=== PATIENT | female | born 1995 | race Caucasian/White ===

== ENCOUNTER 2018-04-01 14:47 | Emergency (ER) | payer MEDICAID, SELFPAY ==
[2018-04-01 14:49] VITALS: BP 139/94; PULSE 140; RESP 20; TEMP 36.8; O2SAT 96; BMI 45.1
--- NOTE | 2018-04-01 15:27 | EKG12_ITS ---
Test Reason : WOUND Blood Pressure : / mmHG Vent. Rate : 123 BPM Atrial Rate : 123 BPM P-R Int : 136 ms QRS Dur : 072 ms QT Int : 316 ms P-R-T Axes : 062 038 025 degrees QTc Int : 452 ms Sinus tachycardia Poor R wave progression Confirmed by GAYATRI YAP, RUSSEL ([id number]), editor managing newspaper KELSIE LOPEZ ([id number] on 04/03/2018 3:12:21 PM Referred By: JAYCEE Confirmed By:RUSSEL MENDIETA MD
--- NOTE | 2018-04-01 15:30 | ED.VISSUMM ---
- ER Visit Summary Date of Service: 04/01/18 Chief Complaint: Right foot pain History of Present Illness: The patient is a 23 F 3 weeks postop for right heel and foot surgery who presents for pain, swelling and exudate at the surgical site. Patient states 3 weeks ago she had surgery on her right heel and foot. She has been on Percocet and 1 week of antibiotics afterwards. She did not complete the antibiotics because they gave her a bad taste in her mouth. Today she is feeling lightheaded and has increased pain. There has been yellowish red oozing from one spot on the surgical incision. She denies fever, nausea or vomiting, chest pain, shortness of breath or other complaints. She had 3 days of diarrhea in the last week. She called her doctor who told her to come to the emergency department. Patient has been taking Percocet for pain and ran out 2 days ago. She is supposed to be wearing a boot but states her foot is too swollen to fit into it. She states her doctor would not put her in a cast despite her requesting a multiple times. Patient's 100 pound dog jumped on her foot last night. Patient denies diabetes. Physical Examination: Vital signs: afebrile, tachycardic at 140, normotensive, no hypoxia on room air General: well nourished, well developed, in no distress, sitting in bed Skin: warm, dry, no rash, no pallor HEENT: normocephalic and atraumatic; PERRL, EOMI, moist mucous membranes Cardiovascular: Tachycardic rate and regular rhythm without murmurs, no peripheral edema, 2+ pulses all distal extremities Respiratory: No increased work of breathing, lungs are clear to auscultation bilaterally, no rales, rhonchi or wheezing Abdominal: Abdomen is soft, nontender with normoactive bowel sounds, no guarding or rebound, no masses MSK: Moves all extremities, no deformities, normal strength, 2 well-healing surgical incisions on the right lateral foot posterior to the lateral malleolus, no erythema, induration. One small site that looks like it has been actively draining, no purulent drainage at this time. Diffuse tenderness to palpation in the region. No fluctuance. Neuro: Awake and alert, oriented ?4. No facial droop, sensation and motor function intact and symmetric Test Results: Abnormal Lab Results 04/01/18 04/01/18 04/01/18 15:50 15:50 15:50 WBC 12.5 H RBC 5.44 H Hgb 15.4 H Hct 45.9 MCV 84.4 MCH 28.3 MCHC 33.6 RDW 13.2 RDW Differential 40.9 Plt Count 456 H MPV 10.0 Immature Gran % (Auto) 0.300 Neut % (Auto) 70.4 H Lymph % (Auto) 19.4 [place] % (Auto) 6.5 Eos % (Auto) 3.1 Baso % (Auto) 0.3 Absolute Neuts (auto) 8.8 H Absolute Lymphs (auto) 2.43 Total Counted Not Reportable PT 12.9 INR 1.0 APTT 37.3 H Sodium 140 Potassium 4.5 Chloride 105 Carbon Dioxide 25.0 Anion Gap 10 BUN 9 Creatinine 0.64 Estim Creat Clear Calc 125.79 Est GFR (MDRD) Af Amer 146 Est GFR (MDRD) Non-Af 121 BUN/Creatinine Ratio 14.1 Glucose 102 Lactic Acid Calcium 9.3 Total Bilirubin 0.50 AST 45 H ALT 81 H Alkaline Phosphatase 97 Total Protein 8.7 H Albumin 3.6 Globulin 5.1 H Albumin/Globulin Ratio 0.7 L 04/01/18 15:50 WBC RBC Hgb Hct MCV MCH MCHC RDW RDW Differential Plt Count MPV Immature Gran % (Auto) Neut % (Auto) Lymph % (Auto) [place] % (Auto) Eos % (Auto) Baso % (Auto) Absolute Neuts (auto) Absolute Lymphs (auto) Total Counted PT INR APTT Sodium Potassium Chloride Carbon Dioxide Anion Gap BUN Creatinine Estim Creat Clear Calc Est GFR (MDRD) Af Amer Est GFR (MDRD) Non-Af BUN/Creatinine Ratio Glucose Lactic Acid 1.7 Calcium Total Bilirubin AST ALT Alkaline Phosphatase Total Protein Albumin Globulin Albumin/Globulin Ratio Clinical Impression(s) from Imaging Studies Foot X-Ray 04/01/18 15:35 IMPRESSION: As above Electronically Signed: Hill Stewart DO at 16:00 EDT Tel , Service support , Medications Given Sodium Chloride () 1,000 mls @ 999 mls/hr IV .Q1H1M YOUNG Last Admin: 04/01/18 15:58 Dose: 999 mls/hr Discontinued Medications Ketorolac Tromethamine (Toradol) 30 mg IV X1 ONE Stop: 04/01/18 15:30 Last Admin: 04/01/18 15:58 Dose: 30 mg Oxycodone HCl (Oxyir) 5 mg PO X1 ONE Stop: 04/01/18 17:14 Emergency Department Course and Treatment: Patient presents with concern for foot infection at site of her surgery 3 weeks ago. Patient showed me a picture of the gauze soaked in the yellowish red discharge, and it did not look purulent but rather serosanguineous. Patient was given IV fluids, Toradol for pain. Because patient presents tachycardic, sepsis workup was initiated. Patient had mild leukocytosis of 12.5. Lactate was normal. Patient had improvement in her heart rate after pain control, and thus I suspect tachycardia was secondary to uncontrolled pain. Patient had no other derangements other than very minimal transaminitis. X-ray showed no deep space gas indicative of necrotizing fasciitis. Patient's incision site had no purulent drainage or dehiscence. Patient felt better after pain control, and she has a follow-up appointment on Tuesday with her surgeon. She was given a small prescription for Percocet and Zofran to get her through to this appointment. She is to restart the Keflex that she already has at home and that she stopped taking because she and her a bad taste in her mouth. Patient will return if any worsening of her condition. Discharged home. Treatment Plan: [] Disposition: [] Impression: Poorly controlled postoperative foot pain This note was generated with [employer] dictation software. It may contain incorrect words, spelling, and punctuation that were not noted in review of the chart prior to signing ED Disposition - Plan for ED Patient: Disposition: Home or Assisted Living Chief Complaint: Wound Instructions: Discharge Instructions for Foot Surgery Prescriptions: Oxycodone HCl/Acetaminophen [Percocet 5/325] 1 tab PO Q6H PRN PRN 3 Days #12 tab PRN Reason: Pain Ondansetron [Zofran Odt] 4 mg PO Q8H PRN PRN #10 tab PRN Reason: Nausea Referrals: Jackson Paz [NON-STAFF] - Additional Instructions: Keep your scheduled appointment with your foot surgeon, Dr. Castro, on Tuesday. Restart the Keflex when you get home, and follow-up with your doctor at your appointment on Tuesday to see if you need to continue it. Use the Percocet as needed for pain and Zofran for nausea. Drink plenty of fluids to stay hydrated. If you develop a high fever, red streaking moving up your right leg, severe uncontrolled pain, or any other new or concerning symptoms, return immediately to the emergency department for another evaluation.
--- NOTE | 2018-04-01 15:35 | RAD_ITS ---
STUDY: X-RAY - RIGHT FOOT CLINICAL: Female, 23 years old. Right foot pain, infection TECHNIQUE: 3 view(s) of the foot. COMPARISON: None. FINDINGS: No acute fracture or dislocation. Recent calcaneal osteotomy with fusion hardware. No evidence of hardware failure or loosening. Osteotomy healing is noted. Mild soft tissue swelling. RAD/Foot min 3 Views IMPRESSION: As above Electronically Signed: Hill Stewart DO at 16:00 EDT Tel , Service support ,
[2018-04-01 15:55] VITALS: PULSE 121; RESP 18; O2SAT 98
[2018-04-01] MEDS: Ketorolac 30 MG/ML Syringe IV (15:58)
[2018-04-01] MEDS: 0.9% Normal Saline 1,000 ML 999 ML IV (15:58)
[2018-04-01 16:25] LABS: Absolute Lymphocyte Count 2.43 X10^3/ul (0.83-4.51); Absolute Neutrophil Count 8.8 X10^3/uL (2.0-7.7); Basophil# 0.04 X10^3/uL; Basophil% 0.3 % (0-1); Eosinophil# 0.39 X10^3/uL; Eosinophils% 3.1 % (0-5); Hematocrit 45.9 % (37-47); Hemoglobin 15.4 g/dl (12.0-15.0); Lymphocyte # 2.43 X10^3/ul (4.0); Lymphocyte % 19.4 % (19-41); Mean Corp Hgb Conc 33.6 g/gl (32-36); Mean Corpuscular Hgb 28.3 pg (27.0-32.0); Mean Corpuscular Volume 84.4 fL (81-99); Monocyte# 0.81 X10^3/uL; Monocyte% 6.5 % (0-10); Neutrophil # 8.83 X10^3/uL (2.7-7.7); Neutrophil % 70.4 % (47-70); Platelet Count 456 K/mm3 (150-450); RBC Distribution Width CV 13.2 % (11.6-14.6); RBC Distribution Width SD 40.9 fl (35.1-43.9); Red Blood Count 5.44 M/mm3 (4.2-5.4); White Blood Count 12.5 K/mm3 (4.4-11.0)
[2018-04-01 16:27] LABS: POSITIVE COUNT NO; POSITIVE DIFFERENTIAL NO; POSITIVE MORPHOLOGY NO
[2018-04-01 16:28] LABS: Partial Thromboplast Time 37.3 Seconds (24.1-36.2); Prothrombin Time (Protime)PT. 12.9 SECONDS (11.7-14.9)
[2018-04-01 16:46] LABS: ALB/GLOB Ratio 0.7 RATIO (0.9-2.4); AST(SGOT) 45 U/L (15-37); Alanine Aminotransfer ALT/SGPT 81 U/L (13-56); Albumin, Serum 3.6 g/dL (3.2-5.0); Alkaline Phosphatase 97 U/L (45-117); Anion Gap 10 (5-15); BUN 9 mg/dL (7-18); BUN/Creat Ratio 14.1 RATIO (10-20); Calcium,Total 9.3 mg/dL (8.5-10.1); Chloride 105 mmol/L (98-107); Creatinine, Serum 0.64 mg/dL (0.55-1.02); EST Glomerular Filtration Rate 121 mL/min (>60); Est Glom Filt Rate - Afr Amer 146 mL/min (>60); Estimated Creatinine Clearance 125.79 ml/min; Globulin 5.1 g/dL (2.2-4.2); Glucose 102 mg/dL (74-106); Potassium 4.5 mmol/L (3.5-5.1); Protein, Total 8.7 g/dL (6.4-8.2); Sodium Level 140 mmol/L (136-145)
[2018-04-01 16:50] VITALS: BP 95/71; PULSE 96; RESP 16; TEMP 36.8; O2SAT 98
[2018-04-01 17:07] VITALS: BP 148/94; PULSE 70; RESP 18; O2SAT 97
[2018-04-01 17:07] LABS: Lactic Acid 1.7 mmol/L (0.4-2.0)
--- NOTE | 2018-04-01 17:16 | ED.DEP ---
ED Disposition - Plan for ED Patient: Disposition: Home or Assisted Living Chief Complaint: Wound Instructions: Discharge Instructions for Foot Surgery Prescriptions: Oxycodone HCl/Acetaminophen [Percocet 5/325] 1 tab PO Q6H PRN PRN 3 Days #12 tab PRN Reason: Pain Ondansetron [Zofran Odt] 4 mg PO Q8H PRN PRN #10 tab PRN Reason: Nausea Referrals: Jackson Paz [NON-STAFF] - Additional Instructions: Keep your scheduled appointment with your foot surgeon, Dr. Castro, on Tuesday. Restart the Keflex when you get home, and follow-up with your doctor at your appointment on Tuesday to see if you need to continue it. Use the Percocet as needed for pain and Zofran for nausea. Drink plenty of fluids to stay hydrated. If you develop a high fever, red streaking moving up your right leg, severe uncontrolled pain, or any other new or concerning symptoms, return immediately to the emergency department for another evaluation.
[2018-04-01 18:07] VITALS: BP 129/85; PULSE 94; RESP 18; O2SAT 99
[2018-04-01] MEDS: oxyCODONE 5 MG Tablet PO (18:08)
== END 2018-04-01 18:13 | disposition home or self-care (01) ==
PROVIDERS: Emergency Provider Emergency Medicine
DX: M79.671 Pain in right foot (principal); G89.18 Other acute postprocedural pain; E66.9 Obesity, unspecified
CPT/HCPCS: 73630; 80053; 83605; 85025; 85610; 85730; 87040; 93005; 96361; 96374; 99285; J7030

== ENCOUNTER → 2019-04-05 | Outpatient (CLI) | payer MEDICAID, SELFPAY | END | disposition home or self-care (01) | LOC: LABSPEC 13:20 | PROVIDERS: Visit Provider Advanced Practice Midwife | DX: Z12.4 Encounter for screening for malignant neoplasm of cervix (principal); Z11.3 Encounter for screening for infections with a predominantly sexual mode of transmission ==

== ENCOUNTER → 2019-04-19 | Outpatient (CLI) | payer MEDICAID, SELFPAY ==
[2019-04-19 15:47] LABS: Absolute Lymphocyte Count 2.69 X10^3/uL (0.83-4.51); Absolute Neutrophil Count 9.3 X10^3/uL (2.0-7.7); Basophil# 0.05 X10^3/uL; Basophil% 0.4 % (0-1); Color, Urine Yellow (Yellow); Eosinophil# 0.24 X10^3/uL; Eosinophils% 1.8 % (0-5); Glucose, Dipstick Normal (Normal); Hematocrit 40.3 % (37-47); Hemoglobin 13.4 g/dL (12.0-15.0); Ketone-Dipstick Negative (Negative); Leukocyte Esterase-Dipstick 25 /ul (Negative); Lymphocyte # 2.69 X10^3/ul (4.0); Lymphocyte % 20.7 % (19-41); Mean Corp Hgb Conc 33.3 g/dL (32-36); Mean Corpuscular Hgb 28.3 pg (27.0-32.0); Mean Corpuscular Volume 85.2 fL (81-99); Mean Platelet Vol. 9.8 fl (6.2-12.0); Monocyte# 0.67 X10^3/uL; Monocyte% 5.1 % (0-10); NRBC Flagged by Analyzer 0 % (0-5); Neutrophil # 9.31 X10^3/uL (2.7-7.7); Neutrophil % 71.5 % (47-70); Nitrite-Dipstick Negative (Negative); Occult Blood-Urine Negative /ul (Negative); Platelet Count 350 K/mm3 (150-450); Protein-Dipstick 15 mg/dl (Negative); RBC Distribution Width CV 13.1 % (11.6-14.6); RBC Distribution Width SD 40.8 fl (35.1-43.9); Red Blood Count 4.73 M/mm3 (4.2-5.4); Urine Bilirubin Dipstick Negative (Negative); Urine Clarity Clear (Clear); Urine Urobilinogen 1 mg/dl (Normal); Urine pH 6.5 (5.0 - 8.0)
[2019-04-19 16:08] LABS: Amphetamine Urine VISTA NEGATIVE (<1000 ng/mL); Barbiturate Urine VISTA NEGATIVE (< 200 ng/mL); Benzodiazepine Urine VISTA NEGATIVE (< 200 ng/mL); Cocaine Urine VISTA NEGATIVE (< 300 ng/mL); Ecstacy Urine VISTA NEGATIVE (< 500 ng/mL); Methadone Urine VISTA NEGATIVE (< 300 ng/mL); PCP Urine VISTA NEGATIVE (< 25 ng/mL); THC Urine VISTA POSITIVE (< 50 ng/mL); Vista UDS pH Range 6
[2019-04-19 16:25] LABS: Glucose Challenge Gest 1H 50g 98 mg/dL (70-140); Thyroid Stim Hormone (TSH) 0.83 uIU/mL (0.358-3.74)
[2019-04-20 10:07] LABS: HIV - WCH Non-Reactive (Nonreactive); Hepatitis B Surface Antigen Non-Reactive (Nonreactive); Hepatitis C Antibody Non-Reactive (Nonreactive); Rubella IgG 348.1 IU/mL
[2019-04-27 02:36] LABS: Prenatal RPR NONREACTIVE (NONREACTIVE)
== END | disposition home or self-care (01) ==
PROVIDERS: Visit Provider Advanced Practice Midwife
DX: Z34.81 Encounter for supervision of other normal pregnancy, first trimester (principal)
CPT/HCPCS: 36415; 80307; 81002; 82950; 84443; 85025; 86703; 86762; 86803; 87340

== ENCOUNTER 2019-07-14 14:18 | Emergency (ER) | payer MEDICAID, SELFPAY ==
[2019-07-14 14:19] VITALS: BP 145/86; PULSE 126; RESP 15; TEMP 36.8; O2SAT 96; BMI 56.7
--- NOTE | 2019-07-14 14:31 | ED.DCSUM_ITS ---
- ER Visit Summary Date of Service: 07/14/19 Chief Complaint: Possible foreign body in foot History of Present Illness: The patient is a 24 F who was concerned of a possible foreign body in her left foot. A month ago she stepped on glass. She removed the glass at that time by herself. About a week ago she started having trouble walking with pain near the left calcaneal area. She has had some bleeding from this area now as well. The pain is worse when she walks. She is currently 22 weeks gestation. Her tetanus is up-to-date. She is concerned that she may not have gotten all the glass out of her foot. Physical Examination: Vital signs are reviewed. Left foot exam reveals tenderness on the lateral bottom portion of the foot near the calcaneal area. No bleeding at this time. No erythema. It is mildly swollen locally Test Results: X-ray of the foot reveals a foreign body in the soft tissues Emergency Department Course and Treatment: The area was localized with lidocaine. There is a small puncture wound there already. I extended it slightly with a scalpel. I was then able to remove a piece of glass with the hemostats. I will place the patient on Keflex. She will follow-up with her doctor Treatment Plan: [] Disposition: Discharge Impression: Left foot soft tissue foreign body Foreign body removal by ED physician This note was generated with [employer] dictation software. It may contain incorrect words, spelling, and punctuation that were not noted in review of the chart prior to signing ED Disposition - Plan for ED Patient: Disposition: Home or Assisted Living Instructions: FOREIGN BODY, Soft Tissue [Removed] Prescriptions: Cephalexin [Keflex] 500 mg PO Q12 #20 cap Prescription Printed Referrals: Care Physician,No Primary [Primary Care Provider] -
--- NOTE | 2019-07-14 14:40 | RAD_ITS ---
STUDY: X-RAY - LEFT FOOT CLINICAL: Female, 24 years old. stepped on glass a month ago, painful, blackened area bottom of foot TECHNIQUE: 3 view(s) of the foot. COMPARISON: None. FINDINGS: Normal talus, calcaneus, and tarsal bones. Normal visualized subtalar, talonavicular, calcaneocuboid, tarsal and tarsometatarsal articulations. Normal metatarsi. Normal metatarsophalangeal joint of the great toe. Normal tibial and fibular sesamoid bones. Normal interphalangeal joint of the great toe. Normal phalanges of the great toe. Normal second through fifth metatarsophalangeal joints. Normal interphalangeal joints and phalanges of the lesser toes. There is 0.4 x 0.1 cm increased density foreign body in the plantar aspect in the area of puncture wound. RAD/Foot min 3 Views IMPRESSION: Foreign body in the soft tissues. Electronically Signed: Efe Rodrigues MD at 15:10 EST , Service support ,
[2019-07-14] MEDS: Cephalexin 250 MG Capsule 500 MG PO (16:13)
[2019-07-14 16:19] VITALS: BP 138/89
== END 2019-07-14 16:20 | disposition home or self-care (01) ==
PROVIDERS: Emergency Provider Emergency Medicine
DX: O99.89 Other specified diseases and conditions complicating pregnancy, childbirth and the puerperium (principal); S90.852A Superficial foreign body, left foot, initial encounter; W22.09XA Striking against other stationary object, initial encounter; O99.332 Smoking (tobacco) complicating pregnancy, second trimester; Z3A.22 22 weeks gestation of pregnancy
CPT/HCPCS: 10120; 73630; 99284

== ENCOUNTER → 2019-08-08 11:41 | Outpatient (CLI) | payer MEDICAID, SELFPAY ==
[2019-07-14 14:19] VITALS: BMI 56.7
[2019-08-08 12:10] LABS: Hematocrit 35.8 % (37-47); Hemoglobin 11.9 g/dL (12.0-15.0); Mean Corp Hgb Conc 33.2 g/dL (32-36); Mean Corpuscular Hgb 28.8 pg (27.0-32.0); Mean Corpuscular Volume 86.7 fL (81-99); Mean Platelet Vol. 9.9 fl (6.2-12.0); Platelet Count 302 K/mm3 (150-450); RBC Distribution Width CV 12.4 % (11.6-14.6); RBC Distribution Width SD 39.3 fl (35.1-43.9); Red Blood Count 4.13 M/mm3 (4.2-5.4); White Blood Count 13.2 K/mm3 (4.4-11.0)
[2019-08-08 12:12] LABS: Protein, Urine (Random) 28.8 mg/dL (<11.9); Protein:Creat Ratio 200 mg/g CRE (0-200)
[2019-08-08 12:34] LABS: AST(SGOT) 15 U/L (15-37); Alanine Aminotransfer ALT/SGPT 32 U/L (12-78); Albumin, Serum 2.7 g/dL (3.4-5.0); Alkaline Phosphatase 103 U/L (50-136); Bilirubin, Direct 0.12 mg/dL (0.00-0.30); Globulin 4.7 g/dL (2.3-3.5); Protein, Total 7.4 g/dL (6.4-8.2); Uric Acid 2.6 mg/dL (2.6-6.0)
== END ==
PROVIDERS: Visit Provider Obstetrics & Gynecology
DX: R60.9 Edema, unspecified (principal)
CPT/HCPCS: 36415; 80076; 82570; 84156; 84550; 85027

== ENCOUNTER → 2019-08-22 10:06 | Outpatient (CLI) | payer MEDICAID, SELFPAY ==
[2019-08-22 11:06] LABS: Hematocrit 37.1 % (37-47); Hemoglobin 12.4 g/dL (12.0-15.0); Mean Corp Hgb Conc 33.4 g/dL (32-36); Mean Corpuscular Hgb 29.5 pg (27.0-32.0); Mean Corpuscular Volume 88.1 fL (81-99); Mean Platelet Vol. 10.2 fl (6.2-12.0); Platelet Count 336 K/mm3 (150-450); RBC Distribution Width CV 12.3 % (11.6-14.6); RBC Distribution Width SD 39.2 fl (35.1-43.9); Red Blood Count 4.21 M/mm3 (4.2-5.4)
[2019-08-22 11:19] LABS: Glucose Challenge Gest 1H 50g 161 mg/dL (70-140)
[2019-08-22 13:57] LABS: Amphetamine Urine VISTA NEGATIVE (<1000 ng/mL); Barbiturate Urine VISTA NEGATIVE (< 200 ng/mL); Benzodiazepine Urine VISTA NEGATIVE (< 200 ng/mL); Cocaine Urine VISTA NEGATIVE (< 300 ng/mL); Ecstacy Urine VISTA NEGATIVE (< 500 ng/mL); Methadone Urine VISTA NEGATIVE (< 300 ng/mL); PCP Urine VISTA NEGATIVE (< 25 ng/mL); THC Urine VISTA POSITIVE (< 50 ng/mL); Vista UDS pH Range 6
== END ==
PROVIDERS: Visit Provider Obstetrics & Gynecology
DX: Z34.83 Encounter for supervision of other normal pregnancy, third trimester (principal)
CPT/HCPCS: 36415; 80307; 82950; 85027

== ENCOUNTER → 2019-08-28 09:41 | Outpatient (CLI) | payer MEDICAID, SELFPAY ==
[2019-08-28 10:51] LABS: Glucose GTT-Gestation. Fasting 91 mg/dL (<105)
[2019-08-28 11:37] LABS: Glucose GTT-Gestational 1 Hr 178 mg/dL (<190)
[2019-08-28 13:28] LABS: Glucose GTT-Gestational 2 Hr 161 mg/dL (<165)
[2019-08-28 13:37] LABS: Glucose GTT-Gestational 3 Hr 85 L (<145)
== END ==
PROVIDERS: Referring Provider Obstetrics & Gynecology; Visit Provider Obstetrics & Gynecology
DX: R73.09 Other abnormal glucose (principal)
CPT/HCPCS: 36415; 82951; 82952

== ENCOUNTER → 2019-10-23 17:55 | Outpatient (CLI) | payer MEDICAID, SELFPAY | PROVIDERS: Referring Provider Obstetrics & Gynecology; Visit Provider Obstetrics & Gynecology | DX: Z36.85 Encounter for antenatal screening for Streptococcus B (principal) | CPT/HCPCS: 87081 ==

== ENCOUNTER 2019-10-31 15:35 | Outpatient (CLI) | payer MEDICAID, SELFPAY ==
[2019-10-31 15:54] VITALS: BMI 56.5
[2019-10-31 16:10] VITALS: TEMP 35.7; O2SAT 96
[2019-10-31 16:12] VITALS: BP 131/75; PULSE 117
--- NOTE | 2019-10-31 17:48 | OB.TRI.HP_ITS ---
- Problem List (1) Maternal care for tachycardia during Status: Acute History of Present Illness Date of Service: 10/31/19 Was patient seen by the physician?: Yes Reason For Visit: NON STRESS TEST Date of Service: 10/31/19 Final LISA: 11/16/19 Final LISA Source: US <20 weeks Gestational age: 37 Weeks and 5 Days History of Present Illness: Patient was in the office for limited US and routine PNV. On US tachycardia was noted with average FHR baseline of 177. Sent to triage for NST. Allergies hydrocodone bitartrate [From Vicodin] Allergy (Verified 10/31/19 15:55) Hives tramadol Adverse Reaction (Verified 10/31/19 15:55) Nausea Review of Systems Constitutional: Denies: Chills, Fever, Weight Change HEENT: Denies: Head Aches, Sinus Congestion, Sinus Drainage Cardiovascular: Denies: Chest Pain, Palpitations Respiratory: Denies: Cough, Shortness of breath at rest, Sputum production Gastrointestinal: Denies: Abdominal Pain, Nausea, Vomiting Genitourinary: Denies: Dysuria Musculoskeletal: Denies: Joint Pain, Joint Tenderness Skin: Denies: Rash, Wounds Neurological: Denies: Numbness, Tingling, Focal weakness Psychiatric: Denies: Anxiety, Depression, Homicidal Ideations, Suicidal Ideations Hematologic/ Lymphatic: Denies: Easy Bruising, Easy Bleeding Physical Exam Vitals: Vital Signs Temp Pulse BP Pulse Ox 96.2 F L 117 H 131/75 H 96 10/31/19 16:10 10/31/19 16:12 10/31/19 16:12 10/31/19 16:10 General: Alert, Oriented x3, No apparent distress HEENT: Atraumatic, Normocephalic. 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 Negative for: Vulvar lesions Estimated gestational size: Appropriate for gestational size NST - FHR Rate Baby A Baseline: 145 Variability:: Moderate Accelerations:: 15 x 15 Decelerations:: None NST Reactive:: Yes FHR Category:: Category I Uterine Activity:: quiet Impression/Plan A/P: Patient at 37.5 weeks with tachycardia in providers office NST in triage reactive, Category I To discharge home Follow up on Tuesday for PNV and NST
== END 2019-10-31 16:45 | disposition home or self-care (01) ==
LOC: WPOUT 15:52 → WP 15:53
PROVIDERS: Referring Provider Obstetrics & Gynecology; Visit Provider Obstetrics & Gynecology
DX: O36.8330 Maternal care for abnormalities of the fetal heart rate or rhythm, third trimester, not applicable or unspecified (principal); Z3A.37 37 weeks gestation of pregnancy
CPT/HCPCS: 59025

== ENCOUNTER 2019-11-06 20:30 | Inpatient (IN) | payer MEDICAID, SELFPAY ==
[2019-11-06] VITALS (25 sets, daily range): BP systolic 125–180; BP diastolic 64–109; PULSE 104–122; TEMP 36.4–36.9; O2SAT 93–97; BMI 55.7
--- NOTE | 2019-11-06 17:06 | OB.TRI.HP_ITS ---
- Problem List (1) 38 weeks gestation of Status: Acute (2) Non-reactive NST (non-stress test) Status: Acute History of Present Illness Date of Service: 11/06/19 Was patient seen by the physician?: Yes Reason For Visit: EXTENDED MONITORING Date of Service: 11/06/19 Final LISA: 11/16/19 Final LISA Source: US <20 weeks Gestational age: 38 Weeks and 4 Days History of Present Illness: NST in office today non reactive with tachycardia, BPP 8/8. Sent for extended monitoring. Allergies hydrocodone bitartrate [From Vicodin] Allergy (Verified 10/31/19 15:55) Hives tramadol Adverse Reaction (Verified 10/31/19 15:55) Nausea Review of Systems Constitutional: Denies: Chills, Fever, Weight Change HEENT: Denies: Head Aches, Sinus Congestion, Sinus Drainage Cardiovascular: Denies: Chest Pain, Palpitations Respiratory: Denies: Cough, Shortness of breath at rest, Sputum production Gastrointestinal: Denies: Abdominal Pain, Nausea, Vomiting Genitourinary: Denies: Dysuria Musculoskeletal: Denies: Joint Pain, Joint Tenderness Skin: Denies: Rash, Wounds Neurological: Denies: Numbness, Tingling, Focal weakness Psychiatric: Denies: Anxiety, Depression, Homicidal Ideations, Suicidal Ideations Hematologic/ Lymphatic: Denies: Easy Bruising, Easy Bleeding Physical Exam Vitals: Vital Signs Temp Pulse BP 98.1 F 109 H 143/71 H 11/06/19 16:29 11/06/19 17:00 11/06/19 17:00 General: Alert, Oriented x3, No apparent distress HEENT: Atraumatic, Normocephalic. 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 Negative for: Vulvar lesions NST - FHR Rate Baby A Baseline: 155 Variability:: Moderate Accelerations:: 10 x 10 Decelerations:: None FHR Category:: Category II Uterine Activity:: irritability Impression/Plan A/P: at 38.4 weeks sent from office for non-reactive NST for prolonged monitoring BP elevated, will monitor and get Pre-E labs if elevated x2 Consulted with Dr. Campbell Will continue to monitor
--- NOTE | 2019-11-06 19:01 | PCM.PN.BLA ---
Progress Note S: Feeling okay, but anxious. Denies pain or contractions. Feeling good FM O: VSS, BP better with different size cuff FHR baseline 150, -accels, -decels, moderate variability A: No accels with stimulation Category II NST P: In consult with Dr. Campbell will admit for Cytotec IOL STROKE Vital Signs/Narrative: Vital Signs Temp Pulse BP 11/06/19 18:26 107 H 133/74 H 11/06/19 17:56 122 H 134/84 H 11/06/19 17:41 106 H 137/84 H 11/06/19 17:26 112 H 135/82 H 11/06/19 17:11 112 H 132/84 H 11/06/19 17:00 109 H 143/71 H 11/06/19 16:56 107 H 180/109 H 11/06/19 16:41 108 H 143/104 H 11/06/19 16:29 98.1 F 11/06/19 16:26 98.1 F 11/06/19 16:25 117 H 139/100 H
--- NOTE | 2019-11-06 20:54 | PCM.HP.OB ---
- Problem List (1) 38 weeks gestation of Status: Acute (2) Non-reactive NST (non-stress test) Status: Acute History Date of Admission: 11/06/19 Final LISA: 11/16/19 Final LISA Source: US <20 weeks Gestational age: 38 Weeks and 4 Days History of this : This is a 24 year-old, G [1], P [0], at 38 weeks gestational age. Allergies hydrocodone bitartrate [From Vicodin] Allergy (Verified 10/31/19 15:55) Hives tramadol Adverse Reaction (Verified 10/31/19 15:55) Nausea Home Medications: Home Medications Calcium Carbonate [Calcium] 600 mg PO BID 07/14/19 Vits [Prenatabs FA] 1 tab PO DAILY 07/14/19 Smoking Status: Never smoker Alcohol: None Substance Use Type: Marijuana Number of Fetus(es): 1 NST - FHR Rate Baby A Baseline: 150 Variability:: Moderate Accelerations:: None Decelerations:: None NST Reactive:: Non-Reactive FHR Category:: Category II Uterine Activity:: quiet History Past Pregnancies: Past Pregnancies: None Expected Delivery Method: Spontaneous Vaginal Number of Visits: 10 Review of Systems Constitutional: Denies: Chills, Fever, Weight Change HEENT: Denies: Head Aches, Sinus Congestion, Sinus Drainage Cardiovascular: Denies: Chest Pain, Palpitations Respiratory: Denies: Cough, Shortness of breath at rest, Sputum production Gastrointestinal: Denies: Abdominal Pain, Nausea, Vomiting Genitourinary: Denies: Dysuria Musculoskeletal: Denies: Joint Pain, Joint Tenderness Skin: Denies: Rash, Wounds Neurological: Denies: Numbness, Tingling, Focal weakness Psychiatric: Denies: Anxiety, Depression, Homicidal Ideations, Suicidal Ideations Hematologic/ Lymphatic: Denies: Easy Bruising, Easy Bleeding Physical Exam Vitals: Vital Signs Temp Pulse BP 98.1 F 107 H 133/74 H 11/06/19 16:29 11/06/19 18:26 11/06/19 18:26 General: Alert, Oriented x3, No apparent distress HEENT: Atraumatic, Normocephalic. 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 Negative for: Vulvar lesions Estimated gestational size: Appropriate for gestational size Presentation: Cephalic Cervix Dilation (cm): 1 Station: -3 Effacement (%): 25 Assessment/Plan All Active Problems Maternal care for tachycardia during (Acute) 38 weeks gestation of (Acute) Non-reactive NST (non-stress test) (Acute) A/P: This is a 24 year-old, G [1], P [0], at 38.4 weeks gestational age. Cytotec IOL for non-reactive FHR, baseline 150, -decels, -accels, moderate variability Continuous monitoring Plans for unmedicated delivery Attending Dr. Campbell updated on POC
[2019-11-06] MEDS: Lactated Ringers 1,000 ML 200 ML IV (21:05)
[2019-11-06 21:27] LABS: Absolute Neutrophil Count 13.6 X10^3/uL (2.0-7.7); Basophil# 0.04 X10^3/uL; Basophil% 0.2 % (0-1); Eosinophil# 0.12 X10^3/uL; Eosinophils% 0.7 % (0-5); Hematocrit 36.6 % (37-47); Hemoglobin 12.2 g/dL (12.0-15.0); Lymphocyte % 14.8 % (19-41); Mean Corp Hgb Conc 33.3 g/dL (32-36); Mean Corpuscular Hgb 28.8 pg (27.0-32.0); Mean Corpuscular Volume 86.5 fL (81-99); Mean Platelet Vol. 10.2 fl (6.2-12.0); Monocyte% 3.5 % (0-10); NRBC Flagged by Analyzer 0 % (0-5); Neutrophil # 13.57 X10^3/uL (2.7-7.7); Neutrophil % 80.2 % (47-70); Platelet Count 402 K/mm3 (150-450); RBC Distribution Width SD 39.8 fl (35.1-43.9); Red Blood Count 4.23 M/mm3 (4.2-5.4); White Blood Count 16.9 K/mm3 (4.4-11.0)
[2019-11-06] MEDS: Mag Hydrox/Al Hydrox/Simeth 30 ML UDC PO (21:52)
[2019-11-06] MEDS: miSOPROStol 25 MCG TABLET VAGINAL (22:07)
[2019-11-07] VITALS (36 sets, daily range): BP systolic 120–146; BP diastolic 58–92; PULSE 94–120; TEMP 35.9–37.5; O2SAT 90–98
[2019-11-07] MEDS: Mag Hydrox/Al Hydrox/Simeth 30 ML UDC PO ×2 (02:05→06:17)
[2019-11-07] MEDS: miSOPROStol 50 MCG TABLET VAGINAL ×2 (02:12→08:10)
[2019-11-07] MEDS: Ondansetron 4 MG/2 ML Vial IV (03:29)
[2019-11-07] MEDS: 0.9% Saline Lock 10 ML Syringe IV ×7 (03:29→22:48)
[2019-11-07] MEDS: Lactated Ringers 500 ML 999 ML IV (06:57)
--- NOTE | 2019-11-07 07:30 | PCM.PN.OB ---
Patient Problems: Active and Suspected Problems 38 weeks gestation of (Acute) Non-reactive NST (non-stress test) (Acute) Subjective: Cramping every now and then, but denying pain. Lots of acid reflux and allergies. Got sick all over herself over night due to acid reflux. Objective: VSS. Resting in bed. FHR baseline 150, - accel, -decel, moderate variability Uterine irritability SVE 1.5/25/high medium midposition - Physical Exam Vitals/I&O's: Vital Signs Temp Pulse BP Pulse Ox 98.4 F 103 H 126/75 H 94 11/07/19 06:06 11/07/19 06:08 11/07/19 06:08 11/07/19 06:07 Weight: 151.953 kg Body Mass Index (BMI) 55.7 Intake and Output for Last 24 Hours 11/05/19 11/06/19 11/07/19 23:59 23:59 23:59 Intake Total 483.33 / 483.33 740 / 740 Output Total 500 / 500 Balance 483.33 / 483.33 240 / 240 General: Alert, Oriented x3, Cooperative HEENT: Atraumatic, PERRLA, EOMI, Normocephalic Neck: Supple, No JVD, Negative Carotid Bruits Lungs: Clear to auscultation, Normal air movement, Wheezes - inspiratory and expiratory Cardiovascular: Regular rate, No murmurs Abdomen: Bowel Sounds Present, Soft, Non Tender Extremities: No edema, Capillary Refill Less than 3 Seconds Skin: No rashes, No breakdown Musculoskeletal: No Tenderness to Palpation of Joints or Extremities Neurological: Cranial nerves II-XII grossly intact Psych/Mental Status: Normal Affect, Appropriate Laboratory Results 11/06/19 21:05: WBC 16.9 H, RBC 4.23, Hgb 12.2, Hct 36.6 L, MCV 86.5, MCH 28.8, MCHC 33.3, RDW Std Deviation 39.8, RDW Coeff of Jesse 13.0, Plt Count 402, MPV 10.2, Immature Gran % (Auto) 0.600, Neut % (Auto) 80.2 H, Lymph % (Auto) 14.8 L, [place] % (Auto) 3.5, Eos % (Auto) 0.7, Baso % (Auto) 0.2, Absolute Neuts (auto) 13.6 H, Absolute Lymphs (auto) 2.50, Nucleated RBC % 0 11/06/19 21:05: Blood Type O POSITIVE, Antibody Screen NEGATIVE Current Medications Acetaminophen (Tylenol) 325 - 650 mg PO Q4H PRN PRN PRN Reason: Pain Score 1-3/10 Al Hydroxide/Mg Hydroxide (Mylanta Ii) 15 - 30 ml PO Q4H PRN PRN PRN Reason: INDIGESTION Last Admin: 11/07/19 06:17 Dose: 30 ml Documented by: Citric Acid/Sodium Citrate (Bicitra) 30 ml PO X1 PRN PRN Reason: Section Famotidine (Pepcid) 40 mg PO X1 ONE Stop: 11/07/19 07:29 Fentanyl Citrate (Sublimaze (100mcg Ampule)) 25 - 50 mcg IV Q2H PRN PRN PRN Reason: Pain Score 4-10/10 Guaifenesin (Mucinex) 1,200 mg PO BID YOUNG Lactated Ringer's () 500 mls @ 999 mls/hr IV .Q31M PRN PRN Reason: Epidural Lactated Ringer's () 500 mls @ 999 mls/hr IV .Q31M PRN PRN Reason: Corrective Measures Last Admin: 11/07/19 06:57 Dose: 999 mls/hr Documented by: Lactated Ringer's () 1,000 mls @ 50 mls/hr IV .Q20H YOUNG Last Infusion: 11/07/19 06:57 Dose: 0 mls/hr Documented by: Misoprostol (Cytotec) 50 mcg VAGINAL Q6H [facility] Last Admin: 11/07/19 02:12 Dose: 50 mcg Documented by: Ondansetron HCl (Zofran) 4 mg IV Q4H PRN PRN PRN Reason: NAUSEA Last Admin: 11/07/19 03:29 Dose: 4 mg Documented by: Prochlorperazine Edisylate (Compazine Iv) 10 mg IV Q6H PRN PRN PRN Reason: NAUSEA Sodium Chloride () 10 - 40 ml IV X1 PRN PRN Reason: SALINE FLUSH Last Admin: 11/07/19 03:29 Dose: 10 ml Documented by: Medical Necessity - Tobacco Use Smoking Status: Current every day smoker Assessment/Plan All Active Problems Maternal care for tachycardia during (Acute) 38 weeks gestation of (Acute) Non-reactive NST (non-stress test) (Acute) A/P: IOL for non-reactive FHR 3rd dose of Cytotec to be given at 0800 Acid reflux and allergies, will order Pepcid and Mucinex per home medications To review POC with Dr. Campbell
[2019-11-07] MEDS: Famotidine 20 MG Tablet 40 MG PO ×2 (08:09→22:47)
[2019-11-07] MEDS: guaiFENesin 1,200 MG Tablet 1200 MG PO ×2 (08:10→20:19)
[2019-11-07] MEDS: 0.9% Normal Saline Single 100 ML IV.SOLN. IY (10:50)
[2019-11-07] MEDS: fentaNYL 100 MCG/2 ML Ampul IV ×5 (11:49→22:16)
[2019-11-07] MEDS: Lactated Ringers 1,000 ML 125 ML IV ×2 (11:56→19:41)
[2019-11-07] MEDS: Oxytocin 30 units/NS 500 ml 30 UNITS/500 ML IV.SOLN IV (14:58)
--- NOTE | 2019-11-07 19:57 | PCM.PN.BLA ---
Progress Note S: Pain with contractions 5/10 O: VSS SVE 07/28/high moderate mid UC Q2-4m Breathing through contractions FHR baseline 155, -accels, -decels, moderate variability, minimal variability at times Pitocin at 3U A: IOL Pain controlled with IV Fentanyl UC are increasing with an increase in pain P: Recheck SVE at 2200. If there is cervical change to keep low dose Pitocin over night. If no change is noted, to Pitocin break overnight and therapeutic rest. Continue pain control Continuous FM STROKE Vital Signs/Narrative: Vital Signs Temp Pulse BP Pulse Ox 11/07/19 19:20 104 H 138/79 H 90 11/07/19 19:19 98.1 F 11/07/19 18:15 94 137/74 H 11/07/19 18:14 98.1 F 96 11/07/19 17:34 114 H 142/71 H 11/07/19 17:33 98.4 F 96 11/07/19 16:19 103 H 144/72 H 11/07/19 16:18 98.1 F
[2019-11-07] MEDS: Zolpidem Tartrate 5 MG Tablet PO (23:40)
[2019-11-08] VITALS (50 sets, daily range): BP systolic 103–145; BP diastolic 58–91; PULSE 88–137; TEMP 36.3–37.6; O2SAT 87–98
[2019-11-08] MEDS: fentaNYL 100 MCG/2 ML Ampul IV ×2 (00:19→12:08)
[2019-11-08] MEDS: 0.9% Saline Lock 10 ML Syringe IV ×3 (00:19→22:07)
--- NOTE | 2019-11-08 07:34 | PCM.PN.BLA ---
Progress Note S: Feeling better today. Did get some sleep, but still intermittent contractions over night O: VSS Uterine irritability FHR baseline 150, -accels, -decels, moderate variability SVE 1/75/-3 soft anterior Pitocin off A/P: at 38.6wk gestation here for IOL for non-reassuring FHR Category II NST head much lower and amniotic sac now palpable Dr. Campbell updated for POC and will be in to place scalp electrode and IUPC Will resume Pitocin after internals placed STROKE Vital Signs/Narrative: Vital Signs Temp Pulse BP Pulse Ox 11/08/19 07:16 98.4 F 110 H 132/77 H 11/08/19 06:22 100 140/69 H 97 11/08/19 06:21 98.8 F
[2019-11-08] MEDS: Famotidine 20 MG Tablet 40 MG PO (09:47)
[2019-11-08] MEDS: guaiFENesin 1,200 MG Tablet 1200 MG PO ×2 (09:47→19:46)
[2019-11-08] MEDS: Lactated Ringers 500 ML 999 ML IV ×2 (13:17→14:21)
[2019-11-08] MEDS: fentaNYL-bupivacaine (epidural) 100 ML BAG EPIDURAL ×2 (14:46→19:46)
--- NOTE | 2019-11-08 15:35 | PCM.PN.BLA ---
Progress Note S: Pain is a / with contractions, with Fentanyl IV 11/10 O: VSS FHR baseline 155, occasional accel, -decels, moderate variability SVE 3/50/-3 (per RN) UC 1.5-5m A: Early active labor Category II NST Uncontrolled labor pain P: Plans epidural Increase Pitocin per protocol SVE once comfortable STROKE Vital Signs/Narrative: Vital Signs Temp Pulse BP Pulse Ox 11/08/19 15:14 106 H 129/74 H 11/08/19 15:09 106 H 129/73 H 98 11/08/19 15:04 128 H 120/69 98 11/08/19 14:59 112 H 130/75 H 96 11/08/19 14:54 121 H 138/75 H 98 11/08/19 14:49 132 H 138/81 H 97 11/08/19 14:47 97.9 F 11/08/19 14:45 120 H 140/87 H 11/08/19 14:44 97 11/08/19 14:39 125 H 137/91 H 11/08/19 14:37 131 H 97 11/08/19 14:35 126 H 134/84 H 11/08/19 14:32 121 H 98 11/08/19 14:30 114 H 130/83 H 11/08/19 14:27 110 H 97 11/08/19 14:25 112 H 129/79 H 11/08/19 14:22 107 H 98 11/08/19 14:17 112 H 97 11/08/19 12:54 106 H 138/85 H 11/08/19 12:53 98.8 F 11/08/19 12:52 106 H 98
[2019-11-08] MEDS: Lactated Ringers 1,000 ML 200 ML IV ×2 (16:36→21:34)
[2019-11-08] MEDS: Ondansetron 4 MG/2 ML Vial IV (22:06)
[2019-11-09] VITALS (38 sets, daily range): BP systolic 112–148; BP diastolic 61–89; PULSE 101–128; RESP 16–18; TEMP 36.2–37.3; O2SAT 94–98
[2019-11-09] MEDS: fentaNYL-bupivacaine (epidural) 100 ML BAG EPIDURAL ×2 (00:54→05:05)
[2019-11-09] MEDS: Lactated Ringers 1,000 ML 200 ML IV ×2 (02:34→08:13)
[2019-11-09] MEDS: Lactated Ringers 500 ML 999 ML IV (04:22)
--- NOTE | 2019-11-09 07:39 | PCM.PN.BLA ---
Progress Note S: Slept a little last night. Epidural is working, but still having sharp pain O: VSS SVE 9.5/90/0 FHR 155 baseline, +accels, -decels, moderate variability Pitocin 8u A/P: Epidural in place, anesthesia updated on patient being uncomfortable Position to right maternal side with peanut ball FHR Category I now with intermittent tachycardia noted in the last hour Dr. Campbell updated on POC Expect STROKE Vital Signs/Narrative: Vital Signs Temp Pulse BP Pulse Ox 11/09/19 07:15 107 H 130/81 H 11/09/19 07:13 98.6 F 98 11/09/19 07:05 108 H 98 11/09/19 07:00 110 H 98 11/09/19 06:55 113 H 98 11/09/19 06:50 110 H 96 11/09/19 06:45 111 H 98 11/09/19 06:44 114 H 132/72 H 11/09/19 06:43 99.1 F 11/09/19 05:23 98.1 F 109 H 132/72 H 11/09/19 04:58 114 H 95 11/09/19 04:53 117 H 96 11/09/19 04:27 95 11/09/19 04:26 105 H 127/62 H 94 11/09/19 04:25 98.4 F
[2019-11-09] MEDS: Famotidine 20 MG Tablet 40 MG PO (10:55)
[2019-11-09] MEDS: Oxytocin 30 units/NS 500 ml 30 UNITS/500 ML IV.SOLN 334 UNITS IV (12:01)
--- NOTE | 2019-11-09 12:20 | PCM.OPRPT ---
Problem List (1) 38 weeks gestation of Status: Acute (2) Non-reactive NST (non-stress test) Status: Acute Vaginal Delivery Maternal Presentation: Medically Indicated Induction Method of Induction: Cytotec Medical Reason for Induction: Compromise: list: - category II nonreactive NST Amniotic Membrane Rupture Type: Artificial Amniotic Fluid Description: Clear Final LISA: 11/16/19 Final LISA Source: US <20 weeks Gestational age: 39 Weeks and 0 Days Date of Procedure: 11/09/19 Pre-Operative Diagnosis: IOL, non-reassuring NST Post-Operative Diagnosis: S/P Surgery/ Procedure Performed: Spontaneous Vaginal Delivery Type of Anesthesia: Epidural Description of Procedure: Patient had spontaneous urge to push and 10/100/+2. Wanting to go for a csection, but with CNM and two RNs was able to push for two hours. head assisted for delivery by modified Ritgen maneuver in OA to CHRIS. Snug shoulders delivered after 40 seconds followed spontaneously by body. The female infant was placed on the maternal abdomen and further attended by nursery personnel with bulb suction and stimulation. The cord was doubly clamped then cut by CNM at approximately 2 minutes of life. Cord blood collected. IV Pitocin started per protocol. With gentle cord traction spontaneous delivery of placenta with trailing membranes. Fundal massage given, noted to be firm and midline. Third degree perineal laceration noted and repaired with a 3.0 rapide double under epidural anesthesia by attending Dr. Campbell. Good hemostasis noted. EBL 250. Sponge and needle count correct x2. Apgars 7/9. Presentation: Vertex, CHRIS Placental Delivery Description: Spontaneous Placenta Disposition: [facility] Cord Vessel Description: 3 Vessels Cord Entanglement: None Drain: Skinner to straight drain Estimated Blood Loss: 250 A gender: Female (1 minute): 7 (5 minute): 9 Episiotomy Description: None Laceration: Perineal Extension/lac, 3rd degree Medications given after delivery: IV Pitocin
[2019-11-09] MEDS: Ibuprofen 600 MG Tablet PO ×2 (13:07→21:44)
[2019-11-09] MEDS: oxyCODONE 5 MG Tablet PO ×3 (14:07→23:23)
--- NOTE | 2019-11-09 16:00 | CASEMGMT ---
Social Work Assessment Labor and Delivery Unit Patient Address: [id number] [place] [address] Phone number: [phone] Date of Referral: 11.09.2019 Time of Referral: 829 Referred By: Verbal notification by nursing Date of Intervention: 11.09.2019 Time of Intervention: 1600 Reason for Referral: maternal use of marijuana in , reported prescribed Vicodin History obtained from: medical records and mother of baby (MOB) Karen Mcnally Household composition: MOB rents from the woman (guardian) that raised MOB. MOB's boyfriend and reported father of baby (FOB) also stays in this home. MOB reports home situation is safe and adequate. Patient's parent/guardian status: MOB is age 24, and involved with reported FOB Silvio Mccain for the last 5 years. There has been at least one period of time when there was separation, as MOB reports upon initial dates of confinement given MOB was uncertain as to the paternity. When new dates given MOB rapports became sure that FOB is the biological father to the baby. MOB denies any form of abuse in relationship with FOB. [place] baby is Sony Mccain, born [birth year].09.2021. First child for MOB and FOB together. FOB has a 5 year old son named Kendell who does visit regularly. Medical History: MOB is G1, P0 to 1 after delivering . care started at 9 weeks. Regular care except for a 6 week gap in care from 05/23/2109 and 07/11/2019. Baby was born at 38 weeks gestation. Weighed 7 pounds 7 ounces. Apgars 7 and 9. Educational Status: MOB graduated from high school and reports to be able to read, write, and to understand what is read. MOB did attend the local [place] [facility] for [employer]. Financial Status: NICHELLE was working at the [employer] for 5 years but is unsure if will return. TASIA works as a reach truck operator and his income is reported to be adequate. Infant Supplies: MOB reports to have needed infant supplies for baby including bassinet, crib, clothing, diapers, wipes, bottles, and formula. MOB is bottle feeding the baby. Childcare/Caregiver(s): MOB and then FOB. Transportation: Reports to have a drivers license and car. Programs/Agencies Involved: Active with WIC and [employer] (Food and medical). Accepted information on [facility] but declined a referral. History of counseling. Denies any other agency involvement. Children Services/Legal Issues: No reported legal issues. As a minor children services was in NICHELLE's life, in and out of NICHELLE's biological parents homes. MOB reports this is how she ended up living with her guardian Nancy. Behavioral Health Issues: Mental Health History: MOB with history of depression and anxiety a bout 8 years ago. History of counseling. PHQ9 score of 6 during . No reports of history of suicidal ideation, intent, attempts. No rapports of harm to others. MOB reports to feel she is doing okay right now with emotional health. Substance Use History: MOB reports history of periodic use of alcohol, but none reported in . MOB with history of marijuana use in and reports last use was between 30-32 weeks gestation. MOB denies any illicit drug use history such as heroin, cocaine, meth, or nonprescribed narcotics. MOB rapports she was prescribed Vicodin, 8 tablets in September for a tooth extraction. Reports took 6 pills and then took the last 2 November 01 or when MOB pulled out a bone spur from her mouth. Family History: Disruptive childhood in biological parental homes. Drug Screens: maternal drug screen for MOB positive on 04.19.2019 and again on 08.22.2019. No further testing noted. Baby's urine is negative at delivery. Meconium is pending. Family/Social Stressors: Unplanned but accepted. Initially with question about paternity but this issue has resolved. COVID-19 has impacted work. Support Systems: MOB rapports FOB, MOB's identified guardian (from when NICHELLE was a minor) Nancy Mcnally, and the stepbrother and sister. Depression/Shaken Baby/Safe Sleeping: Educated MOB to all topics. MOB receptive to conversation and listened intently to discussion around risk factors for . MOB expressed interested in having packet to take home. ASSESSMENT: Met with MOB in room on day of delivery. MOB pleasant and cooperative. Good eye contact. Sitting up on couch eating fast food during social work visit. MOB reports to have all needed supplies for baby, and to have adequate support at home going. MOB reports to feel positively about the baby. MOB accepting of resources offered, including supports related to mood and anxiety disorders. MOB reports she has saved the Vicodin bottle from prescription written by [facility] and reports this was the only opiates that ingested during the . MOB reports plan to abstain from further marijuana use. Educated MOB to [facility] of children services follow up in light of intrauterine exposure of baby to drugs. No voiced concerns by MOB about this education. Safe Plan of Care for related to substance use: Abstain from further use. PLAN: MOB and baby to home when ready. Baby to be on STALIN monitoring, per protocol, for at least 3 days. MOB aware and accepting of needs to monitor baby. MOB has been given [facility] resource list and depression packet including where to turn for help. [facility] information also given. No other services requested or indicated for MOB. Will monitor baby's chart for any needs that may arise. -RICHIE Nash, FUR STYLIST
[2019-11-09] MEDS: guaiFENesin 1,200 MG Tablet 1200 MG PO (21:44)
[2019-11-09] MEDS: Acetaminophen 500 MG Tablet 1000 MG PO (23:23)
[2019-11-10 00:14] VITALS: BP 135/82; PULSE 111; RESP 18; TEMP 36.2
[2019-11-10 04:18] VITALS: BP 142/88; PULSE 105; RESP 18; TEMP 36.8
[2019-11-10] MEDS: Ibuprofen 600 MG Tablet PO ×3 (04:24→20:26)
[2019-11-10] MEDS: oxyCODONE 5 MG Tablet PO ×3 (07:53→22:31)
--- NOTE | 2019-11-10 07:57 | PCM.PN.OB ---
Patient Problems: Active and Suspected Problems 38 weeks gestation of (Acute) Non-reactive NST (non-stress test) (Acute) Subjective: Reports cramping that is controlled with Motrin. Vaginal/anal pain and taking Tylenol for it, plus Oxy when she can. Denies heavy bleeding. Bottle feeding well and has been up to shower. Urinating fine. Reports passing flatus. Objective: VSS. Fundus, firm, u/2, midline. Lochia rubra moderate. - Physical Exam Vitals/I&O's: Vital Signs Temp Pulse Resp BP Pulse Ox 98.3 F 105 H 18 142/88 H 97 11/10/19 04:18 11/10/19 04:18 11/10/19 04:18 11/10/19 04:18 11/09/19 17:41 Oxygen Delivery Method Room Air Weight: 151.953 kg Body Mass Index (BMI) 55.7 Intake and Output for Last 24 Hours 11/08/19 11/09/19 11/10/19 23:59 23:59 23:59 Intake Total 4209.59 / 4209.59 3982.70 / 3982.70 Output Total 850 / 850 625 / 625 Balance 3359.59 / 3359.59 3357.70 / 3357.70 General: Alert, Oriented x3, Cooperative HEENT: Atraumatic, PERRLA, EOMI, Normocephalic Neck: Supple, No JVD, Negative Carotid Bruits Lungs: Clear to auscultation, Normal air movement Cardiovascular: Regular rate, No murmurs Abdomen: Bowel Sounds Present, Soft, Non Tender Extremities: No edema, Capillary Refill Less than 3 Seconds Skin: No rashes, No breakdown Musculoskeletal: No Tenderness to Palpation of Joints or Extremities Neurological: Cranial nerves II-XII grossly intact Psych/Mental Status: Normal Affect, Appropriate Current Medications Acetaminophen (Tylenol) 1,000 mg PO Q8H PRN PRN PRN Reason: Pain Score 1-3/10 Last Admin: 11/09/19 23:23 Dose: 1,000 mg Documented by: Bisacodyl (Dulcolax) 10 mg RECTAL UD PRN PRN Reason: If no BM Guaifenesin (Mucinex) 1,200 mg PO BID YOUNG Last Admin: 11/09/19 21:44 Dose: 1,200 mg Documented by: Hydrocortisone (Hytone) 1 applic TOPICAL TID PRN PRN; Protocol PRN Reason: Discomfort Ibuprofen (Motrin) 600 mg PO Q6H PRN PRN PRN Reason: Pain Score 1-3/10 Last Admin: 11/10/19 04:24 Dose: 600 mg Documented by: Methylergonovine Maleate (Methergine) 0.2 mg IM X1 PRN PRN Reason: Excess bleeding/uterine atony Ondansetron HCl (Zofran) 4 mg IV Q4H PRN PRN PRN Reason: Nausea Oxycodone HCl (Oxyir) 5 - 10 mg PO Q4H PRN PRN PRN Reason: Pain Score 4-10/10 Last Admin: 11/10/19 07:53 Dose: 10 mg Documented by: Senna/Docusate Sodium (Senokot-S, Niki-Colace) 1 - 2 tablet PO DAILY PRN PRN PRN Reason: Constipation Simethicone (Mylicon) 80 mg PO PCHS PRN PRN Reason: Indigestion/Stomach pain Sodium Chloride () 5 - 15 ml IV UD PRN PRN Reason: SALINE FLUSH Throat Lozenges (Dermoplast (Sp)) 1 applic TOPICAL 4X/DAY PRN PRN; Protocol PRN Reason: Pain/Inflammation Last Admin: 11/10/19 04:25 Dose: 1 applic Documented by: Zolpidem Tartrate (Ambien (Generic)) 5 mg PO QHS PRN PRN PRN Reason: Insomnia Medical Necessity - Tobacco Use Smoking Status: Current every day smoker Assessment/Plan All Active Problems Maternal care for tachycardia during (Acute) 38 weeks gestation of (Acute) Non-reactive NST (non-stress test) (Acute) A/P S/P day #1 Bottle feeding daughter Pain is moderate and being controlled with oral medication Normal involution and course Daughter cannot be discharged until Tuesday for STALIN scoring, which has continued to be zero Will discharge Tuesday
[2019-11-10 10:00] VITALS: BP 138/79; PULSE 109; RESP 16; TEMP 36.7
[2019-11-10] MEDS: guaiFENesin 1,200 MG Tablet 1200 MG PO ×2 (10:15→22:31)
[2019-11-10] MEDS: Famotidine 20 MG Tablet 40 MG PO (10:18)
[2019-11-10] MEDS: Senna/Docusate Sodium 1 Tablet PO (13:05)
[2019-11-10] MEDS: Acetaminophen 500 MG Tablet 1000 MG PO (13:05)
[2019-11-10] MEDS: Hydrocortisone 2.5% Crm 1 APPLIC TOPICAL (13:05)
[2019-11-10 16:00] VITALS: BP 154/87; PULSE 110; RESP 16; TEMP 37
[2019-11-10 20:00] VITALS: BP 146/87; PULSE 114; RESP 18; TEMP 37; O2SAT 98
[2019-11-10 20:10] VITALS: O2SAT 98
[2019-11-11 01:45] VITALS: BP 143/97; PULSE 104; RESP 16; TEMP 36.6; O2SAT 97
[2019-11-11] MEDS: Ibuprofen 600 MG Tablet PO ×2 (05:09→12:16)
[2019-11-11 05:30] VITALS: BP 143/87
[2019-11-11] MEDS: Acetaminophen 500 MG Tablet 1000 MG PO (08:25)
[2019-11-11 08:30] VITALS: BP 145/82; PULSE 98; RESP 18; TEMP 36.3; O2SAT 97
[2019-11-11] MEDS: guaiFENesin 1,200 MG Tablet 1200 MG PO (10:18)
[2019-11-11] MEDS: Senna/Docusate Sodium 1 Tablet PO (10:18)
[2019-11-11] MEDS: oxyCODONE 5 MG Tablet PO ×2 (10:18→15:25)
[2019-11-11] MEDS: Famotidine 20 MG Tablet 40 MG PO (10:19)
--- NOTE | 2019-11-11 11:45 | DCINST_ITS ---
Discharge Diet: No Restrictions Discharge Activity: Return to Normal Activity, May not drive while taking narcotic pain medications., May Shower May resume sexual activity in: 4-6 weeks Additional Activity Instructions:: Nothing in the vagina for 4-6 weeks. You may return to work/school in 6 weeks. Call your doctor if your incision/area has: Continuous Slow Oozing, Sudden Increased Bleeding, Increased Pain/ Swelling, Increased Redness, Foul Smelling Discharge Additional Instructions: If you experience any of the following, contact your healthcare provider. * Bleeding that soaks a pad every hour for 2 hours * Fever 100.4 or higher * Unrelieved incision or abdominal pain * Swelling, redness, discharge or bleeding from your incision or episiotomy site * Your incision begins to separate * Problems urinating (including inability to urinate or burning while urinating). * Visual changes * Severe headache * Flu-like symptoms * Pain or redness in one of both of your breasts * Pain, warmth, tenderness or swelling in your legs, especially the calf area * Frequent nausea and vomiting * Symptoms of depression or anxiety If you experience any of the following, call 911 or go to the nearest Emergency Room. * Chest pain * Problems breathing * Seizure activity * Partial or complete paralysis of a body part, slurred speech, weakness or drooping of the face, or a sudden inability to walk or hold your balance Allergies/Adverse Reactions: Allergies hydrocodone bitartrate [From Vicodin] Allergy (Verified 11/10/19 08:03) Hives tramadol Adverse Reaction (Verified 11/10/19 08:03) Nausea Medications to take at Discharge Calcium Carbonate [Calcium] 600 mg PO BID 07/14/19 Vits [Prenatabs FA] 1 tab PO DAILY 07/14/19 Diphenhydramine HCl [Benadryl Allergy] 25 mg PO DAILY PRN PRN 11/07/19 Guaifenesin [Mucinex] 600 mg PO DAILY PRN PRN 11/07/19 Azithromycin [Zithromax Z-Conor] 250 mg PO UD #1 box 11/11/19 Please Follow Up With: Erna Plata CNM When: Call to make an appointment with your CNM in 2 weeks which may be telehealth or in person. 6 week PP visit needs to be in person. Test Results: Test results from this visit will be discussed in further detail at your follow- up appointment, if applicable.
--- NOTE | 2019-11-11 11:51 | PCM.DC.SUM ---
Discharge Date and Diagnosis - Problem List Patient Problems: Active and Suspected Problems 38 weeks gestation of (Acute) Non-reactive NST (non-stress test) (Acute) Date of Admission: 11/06/19 Date of Discharge: 11/11/19 - Primary Discharge Diagnosis Active and Suspected Problems 38 weeks gestation of (Acute) Non-reactive NST (non-stress test) (Acute) Hospital Course and Treatment Summary of Care Provided: The patient is a 24 year old F [] Patient Problems: Active and Suspected Problems 38 weeks gestation of (Acute) Non-reactive NST (non-stress test) (Acute) Subjective: Cramping remains, but taking Motrin and Tylenol. Feels okay. Bottlefeeding daughter. Denies heavy bleeding or s/s of PPD. Wants to go hotel status tonight to stay with daughter. Objective: VSS. At times, mildly elevated BP. Denies headache, blurred vision, RUQ pain or edema. Fundus, firm, midline, u/2. Lochia rubra moderate. - Physical Exam Vitals/I&O's: Vital Signs Temp Pulse Resp BP Pulse Ox 97.3 F L 98 18 145/82 H 97 11/11/19 08:30 11/11/19 08:30 11/11/19 08:30 11/11/19 08:30 11/11/19 08:30 Oxygen Delivery Method Room Air Weight: 151.953 kg Body Mass Index (BMI) 55.7 Intake and Output for Last 24 Hours 11/09/19 11/10/19 11/11/19 23:59 23:59 23:59 Intake Total 3982.70 / 3982.70 Output Total 625 / 625 Balance 3357.70 / 3357.70 General: Alert, Oriented x3, Cooperative HEENT: Atraumatic, PERRLA, EOMI, Normocephalic Neck: Supple, No JVD, Negative Carotid Bruits Lungs: Normal air movement, Wheezes Cardiovascular: Regular rate, No murmurs Abdomen: Bowel Sounds Present, Soft, Non Tender Extremities: No edema, Capillary Refill Less than 3 Seconds Skin: No rashes, No breakdown Musculoskeletal: No Tenderness to Palpation of Joints or Extremities Neurological: Cranial nerves II-XII grossly intact Psych/Mental Status: Normal Affect, Appropriate Current Medications Acetaminophen (Tylenol) 1,000 mg PO Q8H PRN PRN PRN Reason: Pain Score 1-3/10 Last Admin: 11/11/19 08:25 Dose: 1,000 mg Documented by: Bisacodyl (Dulcolax) 10 mg RECTAL UD PRN PRN Reason: If no BM Famotidine (Pepcid) 40 mg PO DAILY [facility] Last Admin: 11/11/19 10:19 Dose: 40 mg Documented by: Guaifenesin (Mucinex) 1,200 mg PO BID [facility] Last Admin: 11/11/19 10:18 Dose: 1,200 mg Documented by: Hydrocortisone (Hytone) 1 applic TOPICAL TID PRN PRN; Protocol PRN Reason: Discomfort Last Admin: 11/10/19 13:05 Dose: 1 applicatio Documented by: Ibuprofen (Motrin) 600 mg PO Q6H PRN PRN PRN Reason: Pain Score 1-3/10 Last Admin: 11/11/19 05:09 Dose: 600 mg Documented by: Methylergonovine Maleate (Methergine) 0.2 mg IM X1 PRN PRN Reason: Excess bleeding/uterine atony Ondansetron HCl (Zofran) 4 mg IV Q4H PRN PRN PRN Reason: Nausea Oxycodone HCl (Oxyir) 5 - 10 mg PO Q4H PRN PRN PRN Reason: Pain Score 4-10/10 Last Admin: 11/11/19 10:18 Dose: 10 mg Documented by: Senna/Docusate Sodium (Senokot-S, Niki-Colace) 1 - 2 tablet PO DAILY PRN PRN PRN Reason: Constipation Last Admin: 11/11/19 10:18 Dose: 2 tablet Documented by: Simethicone (Mylicon) 80 mg PO PCHS PRN PRN Reason: Indigestion/Stomach pain Sodium Chloride () 5 - 15 ml IV UD PRN PRN Reason: SALINE FLUSH Throat Lozenges (Dermoplast (Sp)) 1 applic TOPICAL 4X/DAY PRN PRN; Protocol PRN Reason: Pain/Inflammation Last Admin: 11/10/19 04:25 Dose: 1 applic Documented by: Zolpidem Tartrate (Ambien (Generic)) 5 mg PO QHS PRN PRN PRN Reason: Insomnia Discharge Diet: No Restrictions Discharge Activity: Return to Normal Activity, May not drive while taking narcotic pain medications., May Shower May resume sexual activity in: 4-6 weeks Additional Activity Instructions:: Nothing in the vagina for 4-6 weeks. You may return to work/school in 6 weeks. Call your doctor if your incision/area has: Continuous Slow Oozing, Sudden Increased Bleeding, Increased Pain/ Swelling, Increased Redness, Foul Smelling Discharge Home Medications: Medications to take at Discharge Calcium Carbonate [Calcium] 600 mg PO BID 07/14/19 Vits [Prenatabs FA] 1 tab PO DAILY 07/14/19 Diphenhydramine HCl [Benadryl Allergy] 25 mg PO DAILY PRN PRN 11/07/19 Guaifenesin [Mucinex] 600 mg PO DAILY PRN PRN 11/07/19 Azithromycin [Zithromax Z-Conor] 250 mg PO UD #1 box 11/11/19 Following Prescrptions Were Given to Patient: Azithromycin [Zithromax Z-Conor] 250 mg PO UD #1 box Transmission Status: Sent to [facility] Please Follow Up With: Erna Plata CNM Medical Necessity - Tobacco Use Smoking Status: Current every day smoker Meaningful Use Info Meaningful Use Diagnoses (Choose all that apply): None applicable
[2019-11-11 14:20] VITALS: BP 152/89; PULSE 102; RESP 18; TEMP 36.3
--- NOTE | 2019-11-15 15:30 | CASEMGMT ---
Social Work Labor and Delivery Referral to [facility] tnt powder worker Deana Lockwood at [phone], extension [phone]. Referral due to concern for substance exposed infant with two positive maternal drug screens during . Reported on infant drug testing. Brief maternal and infant histories provided. No other services requested or indicated. -SALINA Nash, HEEL BURNISHER
== END 2019-11-11 16:55 | disposition home or self-care (01) | DRG 542 ==
LOC: WPOUT 20:52 → WP 20:52
PROVIDERS: Admitting Provider Obstetrics & Gynecology; Referring Provider Obstetrics & Gynecology; Visit Provider Obstetrics & Gynecology
DX: O76 Abnormality in fetal heart rate and rhythm complicating labor and delivery (principal); Z3A.39 39 weeks gestation of pregnancy; Z37.0 Single live birth; Z3A.38 38 weeks gestation of pregnancy; O99.334 Smoking (tobacco) complicating childbirth; F17.200 Nicotine dependence, unspecified, uncomplicated; K21.9 Gastro-esophageal reflux disease without esophagitis; O99.62 Diseases of the digestive system complicating childbirth; O70.20 Third degree perineal laceration during delivery, unspecified
CPT/HCPCS: 59025; 59050; 85025; 86850; 86900; 86901; 99218; J7120; A4216; G0378; J2405; J3490

== ENCOUNTER 2020-02-29 14:16 | Emergency (ER) | payer MEDICAID, SELFPAY ==
[2019-11-06 16:45] VITALS: BMI 55.7
[2020-02-29 14:17] VITALS: BP 153/75; PULSE 102; RESP 18; TEMP 36.6; O2SAT 99; BMI 51.4
--- NOTE | 2020-02-29 14:26 | ED.DCSUM_ITS ---
History of Present Illness Chief Complaint: Upper Extremity Injury Informant: Patient Onset: Today Current Severity: Moderate Maximum Severity: Moderate Narrative: Patient present secondary to right wrist injury. She was stepping over something and lost her balance, falling and putting her right hand out to catch herself. She denies pain at the elbow or shoulder. She is right-hand dominant. Past Medical History - Allergies and Home Meds Allergies/Adverse Reactions: Allergies hydrocodone bitartrate [From Vicodin] Allergy (Verified 02/29/20 14:19) Hives tramadol Adverse Reaction (Verified 02/29/20 14:19) Nausea Primary Care Physician: David Frye MD [STAFF PHYSICIAN] - 10-14 Days if not better Care Physician,No Primary [Primary Care Provider] - Surgical History: - - Foot and ankle surgery x3 Lives: With Family Smoking Status: Current every day smoker Review of Systems General: Denies: Chills, Fever Eyes: Denies: Visual changes - bilaterally ENT: Denies: Bilateral ear pain Cardiovascular: Denies: Chest pain Respiratory: Denies: Dyspnea, Cough Gastrointestinal: Denies: Abdominal pain, Nausea, Vomiting, Diarrhea Musculoskeletal: Reports: Swelling, Extremity Pain Skin: Denies: Rash Neurological: Denies: Headache Hematologic: Denies: Easy bruising, Easy bleeding Allergy: Denies: Uticaria Physical Exam Vital Signs/Narrative: Vital Signs Temp Pulse Resp BP Pulse Ox 02/29/20 14:17 97.8 F 102 H 18 153/75 H 99 Inital Vital Signs reviewed: Yes General: Well nourished, Well developed Head: Normocephalic ENT: Moist mucous membranes Neck: Supple Cardiovascular: Regular rate, Regular rhythm Respiratory: No distress, CTA bilaterally Abdomen: Soft, Nontender Extremities: - - Mild edema and tenderness throughout the right wrist. Good cap refill distally and good sensation. No tenderness at the elbow or shoulder. Neurological: Alert, Oriented x3 Psychological: Normal affect Diagnostic/Tx/Re-eval Impressions Wrist X-Ray 02/29/20 15:00 IMPRESSION: Normal x-ray examination of the wrist. Electronically Signed: Enio Lilly, at 15:15 EDT , Service support , 02/29/20 15:00 Wrist min 3 Views [RAD] Stat - Medical Decision Making She was given Naprosyn and 1 tab of oxycodone while awaiting x-rays. Wrist x- rays reveal no evidence of acute fracture. I did advise her that she may have torn a ligament or tendon but at this time there is no evidence of bony injury. She is given a Velcro wrist splint and a prescription for naproxen. She is referred to Dr. David Frye, on-call for orthopedics. ED Disposition - Plan for ED Patient: Disposition: Home or Assisted Living Diagnosis: Wrist sprain Instructions: ED Sprain Wrist Prescriptions: Naproxen [Naprosyn] 500 mg PO BID PRN PRN #20 tab PRN Reason: Pain Score 4-10/10 Transmission Status: Received by [facility] Referrals: Care Physician,No Primary [Primary Care Provider] - David Frye MD [STAFF PHYSICIAN] - 10-14 Days if not better
--- NOTE | 2020-02-29 15:00 | RAD_ITS ---
STUDY: X-RAY - RIGHT WRIST REASON FOR EXAM: Female, 25 years old. Fall, wrist pain TECHNIQUE: 3 view(s) of the wrist were obtained. COMPARISON: None. FINDINGS: Normal visualized distal radius and ulna. Normal radiocarpal articulation. Normal distal radioulnar articulation. Normal carpal bones. Normal carpal articulations. Normal carpometacarpal articulation of the thumb. Normal second through fifth carpometacarpal articulations. Normal visualized metacarpal bones. The soft tissue structures are unremarkable. RAD/Wrist min 3 Views IMPRESSION: Normal x-ray examination of the wrist. Electronically Signed: Enio Lilly, at 15:15 EDT , Service support ,
[2020-02-29] MEDS: Naproxen 500 MG Tablet PO (15:07)
[2020-02-29] MEDS: oxyCODONE 5 MG Tablet PO (15:07)
== END 2020-02-29 15:54 | disposition home or self-care (01) ==
PROVIDERS: Emergency Provider Emergency Medicine
DX: S63.501A Unspecified sprain of right wrist, initial encounter (principal); F17.200 Nicotine dependence, unspecified, uncomplicated; W01.0XXA Fall on same level from slipping, tripping and stumbling without subsequent striking against object, initial encounter
CPT/HCPCS: 73110; 99283

== ENCOUNTER → 2020-09-25 09:07 | Outpatient (CLI) | payer MEDICAID, SELFPAY ==
[2020-09-25 11:25] LABS: Anion Gap 5 (5-15); BUN 8 mg/dL (7-18); BUN/Creat Ratio 14.8 RATIO (10-20); Calcium,Total 9.2 mg/dL (8.5-10.1); Chloride 103 mmol/L (98-107); Creatinine, Serum 0.54 mg/dL (0.55-1.02); EST Glomerular Filtration Rate 144 mL/min (>60); Est Glom Filt Rate - Afr Amer 174 mL/min (>60); Glucose 82 mg/dL (74-106); Potassium 3.8 mmol/L (3.5-5.1); Sodium Level 138 mmol/L (136-145)
[2020-09-25 16:17] LABS: BNP,B-Type NATRIURETIC PEPTIDE 23.2 pg/mL (0-100)
== END ==
DX: I11.0 Hypertensive heart disease with heart failure (principal); I50.22 Chronic systolic (congestive) heart failure; O90.3 Peripartum cardiomyopathy; R79.89 Other specified abnormal findings of blood chemistry; G47.33 Obstructive sleep apnea (adult) (pediatric)
CPT/HCPCS: 36415; 80048; 83880

== ENCOUNTER → 2020-10-13 12:09 | Outpatient (CLI) | payer MEDICAID, SELFPAY ==
[2020-10-13 13:14] LABS: Anion Gap 3 (5-15); BUN 8 mg/dL (7-18); Calcium,Total 9.2 mg/dL (8.5-10.1); Chloride 104 mmol/L (98-107); Creatinine, Serum 0.57 mg/dL (0.55-1.02); EST Glomerular Filtration Rate 134 mL/min (>60); Est Glom Filt Rate - Afr Amer 162 mL/min (>60); Glucose 86 mg/dL (74-106); Potassium 4.1 mmol/L (3.5-5.1); Sodium Level 136 mmol/L (136-145)
== END ==
DX: I50.22 Chronic systolic (congestive) heart failure (principal)
CPT/HCPCS: 36415; 80048